=== PATIENT | female | born 1945 | race Caucasian/White ===

== ENCOUNTER 2022-08-12 02:45 | Day surgery (SDC) | payer MEDICARE, OTHER, SELFPAY ==
--- NOTE | 2022-08-03 15:43 | PC.NURSE ---
Report to the Outpatient Waiting Room, entrance under the green pavilion located off [facility], at time _1100 on date __08/12/22 . Planned Procedure Time: __1300 . Time changes happen often and if your time is changed the preop area will call you the afternoon before. - You and your visitor will be asked to self-screen and do not enter if you have any COVID symptoms. - Only one visitor is requested with a max of two and NO children visitors are allowed at this time. - The patient visitor may be requested to leave or wait in car when not with patient due to distancing restrictions. - A mask is optional within the hospital. Patients may have clear liquids (water, carbonated beverages, clear teas, apple juice) until 3 hours prior to surgery with a maximum of 20 ounces. - No food from midnight until time of surgery - Infants may have breast milk until 4 hours before surgery, infant formula 6 hours prior to surgery. - Children will be allowed to drink immediately following surgery. If applicable, please bring a bottle or sippy cup to assist with drinking. Juice, water, soda, and popsicles are readily available. For infants on formula, please bring formula the day of surgery. Pacifiers are allowed. Take the following medications with a SIP of water the morning of surgery: ___NONE Medications to discontinue per physician __PT STATES ASPIRIN 7 DAYS PRE OP PER DR MIGUEL LAST DOSE 08/04/22__ALL VITAMINS AND SUPPLEMENTS 3 DAYS LAST DOSE 08/08/22 Please no make-up, nail vietnamese, hairspray, perfume, deodorant, or body powder the day of surgery. No jewelry (including any body piercings) or valuables the day of surgery, leave them at home. Please take a shower or bath the night before, or the morning of, surgery with an antibacterial soap. Wear comfortable, loose fitting clothing. Children are encouraged to wear pajamas. - Jewelry must be removed prior to entering the operating room. Rings and piercings that are not removed may be cut off. - The hospital will not accept responsibility for valuables. - Please leave all valuables, including medications, at home the day of surgery. If you are going home after surgery, a licensed boat driver must drive you home. - NO public transportation without another adult if you receive anesthesia. - We recommend that an adult stay with you for 24 hours following discharge. - We also recommend that you do not drive, make important decision, drink alcoholic beverages, or take any drugs that were not prescribed by your health care provider for at least 24 hours after your discharge time. For Pediatric surgeries, we recommend two adults accompany the child home. Follow any additional instructions given to you from your surgeon. If you or anyone in your household have experienced Covid symptoms in the past week, please notify your surgeon or the nurse liaison at the phone number below for possible testing. Telephone instructions given to ___PATIENT and asked if any additional questions and then verbalized understanding. Patient advised to call surgeon office or pre surgery nurse liaison [phone] if any additional questions.
[2022-08-03 15:49] VITALS: BMI 32.9
--- NOTE | 2022-08-05 15:02 | P.HP_ITS ---
History of Present Illness History of Present Illness Consent: Risks, benefits, and alternatives have been discussed and questions answered. Patient agrees to proceed with procedure. 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 Recent attempted surveillance cystoscopy was on successful because of her generalized limited mobility and a recessed ur ethra. She presents for surveillance cystoscopy with urethral dilatation. Review of Systems Cardiovascular: Cardiovascular: Denies chest pain, Denies lightheadedness, Denies palpitations and Denies dyspnea Respiratory: Respiratory: Denies dyspnea Gastrointestinal: Gastrointestinal: Denies diarrhea, Denies nausea and Denies vomiting Genitourinary: Genitourinary: Denies hematuria and Denies dysuria Endocrine: Endocrine: Denies palpitations PMFSH Social History Social History Smoking packs per day: 1 Smoking cigarettes per day: 20.0 Years smoked: 25 Smoking pack-years: 25.00 Smoking status: Former smoker Tobacco type: cigarettes Smoking end date: 08/08/13 Living arrangements: alone Spiritual care concerns: No Meds Home Medications and Allergies Home Medications Medication Instructions Recorded Confirmed Type anastrozole 1 mg tablet 1 mg PO DAILY 08/03/22 08/03/22 History ascorbic acid (vitamin C) 500 mg 500 mg PO DAILY 08/03/22 08/03/22 History tablet aspirin 81 mg tablet,delayed 81 mg PO DAILY 08/03/22 08/03/22 History release (Adult Low Dose Aspirin) calcium carbonate 600 mg-vitamin 1 tablet PO DAILY 08/03/22 08/03/22 History D3 10 mcg (400 unit) tablet (Calcium 600 + D(3)) cholecalciferol (vitamin D3) 25 25 mcg PO DAILY 08/03/22 08/03/22 History mcg (1,000 unit) tablet cyanocobalamin (vitamin B-12) 1,000 mcg PO DAILY 08/03/22 08/03/22 History 1,000 mcg tablet omega-3 fatty acids 1,000 mg PO DAILY 08/03/22 08/03/22 History Allergies Allergy/AdvReac Type Severity Reaction Status Date / Time bupropion Allergy Unknown Rash Verified 08/03/22 15:28 Penicillins Allergy Unknown Rash Verified 08/03/22 15:28 Sulfa (Sulfonamide Allergy Unknown Rash Verified 08/03/22 15:28 Antibiotics) Ahqlxky-CEZ-SeQ Reductase AdvReac Hives Verified 08/03/22 15:28 Inhibitor Exam Const: General: no acute distress Resp: Effort & Inspection: normal respiratory effort GI: Inspection: non-distended GI Palp: No abdominal tenderness and No Guarding due to palpation present (GI) Auscultation: normal bowel sounds Assessment and Plan Assessment and plan (1) History of bladder cancer: Code(s): Z85.51 - Personal history of malignant neoplasm of bladder Status: Acute Assessment and Plan: * Cystoscopy with urethral dilatation (2) Chronic urethral stricture: Status: Acute
--- NOTE | 2022-08-11 13:02 | P.PNAN_ITS ---
Anes - Initial Pre Proc Eval Procedure: Operation Date: 08/12/22 12:30 Proposed Procedures p Cystoscopy, Urethral Dilatation - Bassam Erazo MD Date/Time: 08/11/22 13:02 Surgeon: Bassam Erazo MD Pre Op Diagnosis: Bladder Cancer Patient Data Age: 76 Gender: F Height: 1.5 m Weight: 73.95 kg Allergies Allergy/AdvReac Type Severity Reaction Status Date / Time bupropion Allergy Unknown Rash Verified 08/12/22 10:55 Penicillins Allergy Unknown Rash Verified 08/12/22 10:55 Sulfa (Sulfonamide Allergy Unknown Rash Verified 08/12/22 10:55 Antibiotics) Krovsld-ETF-PfK Reductase AdvReac Hives Verified 08/12/22 10:55 Inhibitor Home Medications Medication Instructions Recorded Confirmed Type anastrozole 1 mg tablet 1 mg PO DAILY 08/03/22 08/12/22 History ascorbic acid (vitamin C) 500 mg 500 mg PO DAILY 08/03/22 08/12/22 History tablet aspirin 81 mg tablet,delayed 81 mg PO DAILY 08/03/22 08/12/22 History release (Adult Low Dose Aspirin) calcium carbonate 600 mg-vitamin 1 tablet PO DAILY 08/03/22 08/12/22 History D3 10 mcg (400 unit) tablet (Calcium 600 + D(3)) cholecalciferol (vitamin D3) 25 25 mcg PO DAILY 08/03/22 08/12/22 History mcg (1,000 unit) tablet cyanocobalamin (vitamin B-12) 1,000 mcg PO DAILY 08/03/22 08/12/22 History 1,000 mcg tablet omega-3 fatty acids 1,000 mg PO DAILY 08/03/22 08/12/22 History Patient hx anesthesia problems: none Family hx anesthesia problems: none Results Review: All pre-operative results and documents have been reviewed as part of the pre- operative evaluation. [facility] Past Medical History Medical History (Updated 08/11/22 @ 13:03 by Rachid Cobb MD) Atrial fibrillation Breast cancer Chronic urethral stricture History of bladder cancer Hyperlipidemia Obesity JAKUB (obstructive sleep apnea) Social History Social History Smoking packs per day: 1 Smoking cigarettes per day: 20.0 Years smoked: 25 Smoking pack-years: 25.00 Smoking status: Former smoker Tobacco type: cigarettes Smoking end date: 08/08/13 Living arrangements: alone Spiritual care concerns: No Anes - Eval Final PreProcedure Day of Procedure 08/11/22 13:02 Patient weight: obese Heart: regular rate and rhythm Lungs: clear to auscultation and normal air movement Airway: Mallampati scale class II Neurological: alert and oriented Last oral intake: >/= 8 hours ASA classification: III Emergent: no Anesthetic plan: proceed Anesthesia type and monitoring: general LMA Results Review: All pre-operative results and documents have been reviewed as part of the pre- operative evaluation. Informed Consent: The patient's anesthetic plan and its attendant risks and benefits were discussed with the patient/family/POA. Questions were solicited and answers provided to the satisfaction of the patient/family/POA.
[2022-08-12] VITALS (8 sets, daily range): BP systolic 116–164; BP diastolic 70–85; PULSE 71–84; RESP 14–20; TEMP 36.2–36.5; O2SAT 98–100
--- NOTE | 2022-08-12 06:30 | WPDHPUPDATE1 ---
History and Physical Update Update Date/Time: 08/12/22 06:30 History and Physical has been reviewed, including an updated exam of the patient. There are NO changes in the patient's condition. Risks, benefits, and alternatives have been discussed and questions answered. Patient agrees to proceed with procedure.
[2022-08-12] MEDS: LACTATED RINGERS 1,000 ML 30 ML IV CONT (11:08)
[2022-08-12] MEDS: ceFAZolin 2 GM/D5W 50 ML 2 GM/50 ML BAG IVPB (11:55)
[2022-08-12] MEDS: LIDOCAINE HCL 2% GEL UROJET 10 ML PKG MUCOUS MEM (12:02)
--- NOTE | 2022-08-12 12:16 | W.PM.PROC2 ---
Procedure Note - Detailed Date of Procedure 08/12/22 Pre-op Diagnosis history of bladder cancer, urethral stricture Post-op Diagnosis Other ( urethral stricture and bladder without evidence recurrent neoplasm) Procedure Performed cystoscopy with urethral dilatation Surgeon Bassam Erazo MD Anesthesia MAC Description of Procedure Patient is brought the op suite where she was prepped/draped in routine sterile fashion while in dorsal lithotomy position. 2% xylocaine jelly was introduced intraurethrally and allowed to stand for an appropriate time. I dilated her urethra with female sounds from 14 F to 26 F. Flexible cystoscopy that showed a normal bladder neck and urethra. Bladder mucosa was normal. There was no intravesical foreign body or neoplasm. She has single orthotopic ureteral orifice with clear efflux bilaterally. This point I think she can follow-up in 6 months for surveillance cystoscopy in the office Drains No Packing Yes Pathology None sent Complications No immediate complications Condition Stable Disposition PACU
== END 2022-08-12 14:45 | disposition home or self-care (01) ==
PROVIDERS: PCP Family Medicine; Visit Provider Urology
PROC: 0T7D8ZZ Dilation of Urethra, Via Natural or Artificial Opening Endoscopic (ICD-10-PCS; CPT 52281; principal; 2022-08-12 12:30)
DX: N35.92 Unspecified urethral stricture, female (principal); Z85.51 Personal history of malignant neoplasm of bladder; I48.91 Unspecified atrial fibrillation; E78.5 Hyperlipidemia, unspecified; G47.33 Obstructive sleep apnea (adult) (pediatric); Z85.3 Personal history of malignant neoplasm of breast; Z79.82 Long term (current) use of aspirin; Z79.811 Long term (current) use of aromatase inhibitors; E66.9 Obesity, unspecified; Z68.33 Body mass index [BMI] 33.0-33.9, adult; Z87.891 Personal history of nicotine dependence
CPT/HCPCS: 52000; A9270; J0690; J1100; J2405; J2704; J3010; J7120